=== PATIENT | female | born 1990 | race Caucasian/White ===

== ENCOUNTER 2024-08-04 10:15 | Emergency (ER) | payer SELFPAY ==
--- NOTE | ~2024-08-04 | CT_ITS ---
CT of the Abdomen and Pelvis: Indication: Abdominal pain Technique: 2.5 mm axial scans were obtained through the abdomen and pelvis following intravenous adm inistration of 100 cc of Omnipaque 350. Dose reduction technique was used on this scan by utilizing a utomated exposure control and iterative reconstruction technique. The dose-length product (DLP) was 1 63.95 mGy-cm. Findings: Scans through the lung bases are unremarkable. The liver, spleen, pancreas, gallbladder, adrenals and kidneys are within normal limits. No evidence of aortic aneurysm. No lymphadenopathy. No bowel obstruction or bowel wall thickening. There is no evidence to suggest acute appendicitis. Images through the pelvis were performed. Urinary bladder unremarkable. No pelvic mass evident. No as cites. Bilateral L5 pars interarticularis defects are present, with grade 1 anterolisthesis of L5 ove r S1. Impression: No acute abnormality. Bilateral L5 pars interarticularis defects, with grade 1 anterolisthesis of L5 over S1. Reviewed, dictated and finalized at location . Impression: No acute abnormality. Bilateral L5 pars interarticularis defects, with grade 1 anterolisthesis of L5 over S1.
--- NOTE | ~2024-08-04 | US_ITS ---
EXAMINATION: US pelvic complete w TV INDICATION: Lower abdomen pain. Vaginal bleeding. Comparison:No prior studies for comparison. TECHNIQUE: Multiple transabdominal and endovaginal sonographic images of the pelvis performed. FINDINGS: The uterus measures 9.1 x 4.2 x 4.9 cm.. There is a hypoechoic 1 cm mass near the cervix, l ikely complicated nabothian cysts. The endometrial complex measures 3 mm. The right ovary measures 3 x 2.4 x 1.7 cm and the left ovary measures 2.1 x 2.7 x 1.3 cm. There is a right ovarian cyst measuring 1.8 cm. There are small follicles in each ovary. Normal doppler signal in both ovaries. There is free fluid in the pelvis. There are no abnormal masses seen on either side. IMPRESSION: 1. Right ovarian simple cyst measuring 1.8 cm. 2: Probable complicated nabothian cyst measuring 1 cm. Reviewed, dictated and finalized at location A.
[2024-08-04 10:41] VITALS: BP 103/60; PULSE 65; RESP 16; TEMP 36.5; O2SAT 100
[2024-08-04 11:12] LABS: Basophils Absolute Auto 0.1 K/mm3 (0.0-0.1); Basophils Percent Auto 1.3 % (0.2-1.2); Eosinophils Absolute Auto 0.1 K/mm3 (0-0.3); Eosinophils Percent Auto 1.6 % (0-4.4); Hematocrit 32.7 % (37.0-47.0); Hemoglobin 10.5 g/dL (12.0-15.0); Lymphocytes Absolute Auto 1.72 K/mm3 (0.9-3.2); Lymphocytes Percent Auto 44.6 % (18.3-44.2); Mean Corpuscular HGB Conc 32.1 g/dl (32-36); Mean Corpuscular Hemoglobin 29.6 pg (26-34); Mean Corpuscular Volume 92.1 fl (80-100); Mean Platelet Volume 11.3 fl (7.4-10.4); Monocytes Absolute Auto 0.3 K/mm3 (0.1-0.6); Monocytes Percent Auto 8.5 % (2.6-8.5); Neutrophils Absolute Auto 1.7 K/mm3 (1.3-6.7); Platelet Count Result 186 k/mm3 (150-375); Red Blood Count 3.55 M/mm3 (4.2-5.4); Red Cell Distribution Width 13.8 % (11.5-14.5); White Blood Count 3.9 K/mm3 (4.5-10.0)
--- NOTE | 2024-08-04 11:12 | PC.NURSE ---
NAVEEN Nelson at bedside assessing pt.
--- NOTE | 2024-08-04 11:15 | ECG_ITS ---
Test Date: 2024-08-04 13:03:59 Measurements Intervals Berkley Rate: 51 P: 74 GA: 136 QRS: 34 QRSD: 91 T: 51 QT: 445 QTc: 411 Interpretive Statements SINUS BRADYCARDIA LOW QRS VOLTAGE IN PRECORDIAL LEADS [QRS DEFLECTION < 1.0 mV IN CHEST LEADS] No previous ECG available for comparison Electronically Signed On 08-04-2024 17:59:18 CDT by Ramya Calhoun
[2024-08-04 11:24] LABS: Alanine Aminotransferase 24 U/L (6-35); Albumin Level 4.3 g/dL (3.5-5.1); Alkaline Phosphatase 31 U/L (38-126); Anion Gap 10 mmol/L (4-12); Aspartate Amino Transferase 32 U/L (14-36); Bilirubin,Total 0.6 mg/dL (0.2-1.3); Blood Urea Nitrogen 9 mg/dL (7-17); Calcium 8.6 mg/dL (8.4-10.2); Carbon Dioxide 21 mmol/L (22-30); Chloride 106 mmol/L (98-107); Estimated CRCL calculation 73 ml/min; Estimated Glomerular Filt Rate > 60; Glucose 83 mg/dL (65-110); Potassium 3.8 mmol/L (3.4-5.0); Sodium 137 mmol/L (137-145)
--- NOTE | 2024-08-04 11:32 | PC.NURSE ---
Lab called to add on lipase.
[2024-08-04 11:33] LABS: Partial Thromboplastin Time 26.6 Seconds (22.3-36.8); Prothrombin Time 13.3 Seconds (11.1-14.7)
[2024-08-04 11:40] LABS: Beta HCG Quantitative < 2.39 mIU/ML
[2024-08-04 11:49] LABS: Add Urine Microscopic? YES; Appearance Urine Clear (Clear); Bacteria Urine None Seen /hpf; Bilirubin Urine Negative (Negative); Blood Urine Trace (Negative); Color Urine Yellow (Yellow); Glucose Urine UA Negative (Negative); Ketones Urine Negative (Negative); Leukocyte Esterase Ur Negative LEU/UL (Negative); Nitrate Urine Negative (Negative); Non Pathogenic Casts 0-2; Protein Urine Negative (Negative); RBC Urine 0-2 /hpf (0-2); Specific Grav Ur 1.006 (1.001-1.035); Squamous Epithelial Cell Urine None Seen /hpf (Few); Urobilinogen Urine 0.2 mg/dL (<2.0); WBC Urine 0-5 /hpf (0-3); pH Urine 7.5 (5.0-9.0)
[2024-08-04 11:52] LABS: Lipase 61 U/L (23-300)
--- NOTE | 2024-08-04 11:54 | ED_ITS ---
HPI - Female Genitourinary General Chief complaint: Vaginal Bleeding Stated complaint: vaginal bleeding Time Seen by Provider: 08/04/24 10:23 History of Present Illness HPI Narrative: 34-year-old female presents to the emergency department for abnormal uterine bleeding and lower abdominal pain. Patient states 2 nights ago she had sexual intercourse with her boyfriend and states she had sharp pain in her pelvic region that radiated to her anus. States after having sexual intercourse she felt “sore” in her pelvic region. Following day she began developing light vaginal spotting and this morning developed heavy vaginal bleeding. She states she had to change her pad/tampon several times an hour. She states this morning she passed a hand size “mass” she describes as cloudy and pink. She states she contacted her PCP and was advised to come to the ED. She also notes that earlier today she felt like she was going to pass out due to the amount of blood she was losing. She endorses a history of anemia. She has had 1 sexual partner in the past year and denies concern for STDs. Denies dysuria, hematuria, fever. Related Data Allergies Allergy/AdvReac Type Severity Reaction Status Date / Time No Known Allergies Allergy Mild Verified 08/04/24 10:51 Review of Systems 2 Review of Systems: All systems reviewed & are unremarkable except as noted in HPI and below Exam 2 Narrative: GENERAL: Well-appearing, well-nourished, and in no acute distress. HEAD: Normocephalic, atraumatic. EYES: EOMI. ENT: Nares clear, no rhinorrhea or epistaxis. Mucous membranes moist. NECK: Supple. CHEST: Clear to auscultation. No respiratory distress. HEART: Regular rate and rhythm. No murmur heard. Normal peripheral pulses. ABDOMEN: Normoactive bowel sounds. Abdomen soft with tenderness diffusely to the lower abdomen and suprapubic region. No rebound or rigidity. No CVA tenderness. : Chaperoned by JULITO Mitchell: Normal external genitalia with mild amount of blood in the vaginal vault. Cervical os closed, no lacerations, no puncture wounds. No clots or masses. No CMT, adnexal masses or tenderness. EXTREMITIES: Normal range of motion. No edema. SKIN: Warm, dry, no rash. NEURO: No focal deficits. Alert and oriented x3 Course Vital Signs Vital signs: Vital Signs Temperature 97.7 F 05/14/25 10:41 Pulse Rate 65 08/04/24 10:41 Respiratory Rate 16 08/04/24 10:41 Blood Pressure 103/60 08/04/24 10:41 Pulse Oximetry 100 08/04/24 10:41 Oxygen Delivery Room Air 08/04/24 10:41 Temperature 97.7 F 08/04/24 10:41 Pulse Rate 66 08/04/24 12:53 Respiratory Rate 16 08/04/24 12:53 Blood Pressure 103/60 08/04/24 10:41 Pulse Oximetry 97 08/04/24 12:53 Oxygen Delivery Room Air 08/04/24 10:41 MDM - Female Genitourinary MDM Narrative Medical decision making narrative: 34-year-old female presents to the emergency department for vaginal bleeding and lower abdominal pain. Patient had sexual intercourse 2 nights ago and developed pelvic pain, the following day developed vaginal spotting with heavy vaginal bleeding today. Reported associated lightheadedness/presyncope. Triage vitals is unremarkable. Patient is afebrile and nontoxic appearing. Exam is significant for the above. Given reported lower abdominal pain and vaginal bleeding is after sexual intercourse, will perform pelvic exam, obtained lab work, pelvic ultrasound, CT abdomen pelvis. Pelvic exam is notable for the above. Notably, no cervical laceration or obvious perforation, no hemorrhage. No CMT. CBC with leukopenia of 3.9 and hemoglobin of 10.5. No prior for comparison. Platelets 186. Chemistries are unremarkable. is negative. UA is unremarkable, no UTI or hematuria. Lipase is within normal limits. Pelvic ultrasound shows a right ovarian simple cyst measuring 1.8 cm and a probable complicated on both insist measuring 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 Patient is neurovascularly intact, no saddle anesthesia, no bowel or bladder incontinence or urinary retention. GC/chlamydia and Trichomonas tests pending. Patient declines empiric treatment of STDs. Patient updated on results. She received IV fluids with improvement and is ambulatory in the ED without lightheadedness or dizziness. Her bleeding has significantly improved and her exam is reassuring. Suspect her symptoms are due to menstruation vs abnormal uterine bleeding. Patient was advised to follow-up with her PCP and global expansion sales director given strict ED return precautions. She is agreeable with the plan verbalized understanding. Discharged in stable condition. Lab Data 08/04/24 11:00 08/04/24 11:00 Labs: Lab Results 08/04/24 08/04/24 08/04/24 Range/Units 11:00 11:25 12:29 WBC 3.9 L (4.5-10.0) K/mm3 RBC 3.55 L (4.2-5.4) M/mm3 Hgb 10.5 L (12.0-15.0) g/dL Hct 32.7 L (37.0-47.0) % MCV 92.1 (80-100) fl MCH 29.6 (26-34) pg MCHC 32.1 (32-36) g/dl RDW 13.8 (11.5-14.5) % Plt Count 186 (150-375) k/mm3 MPV 11.3 H (7.4-10.4) fl Immature Gran % (Auto) 0.0 (0-0.5) % Neut % (Auto) 44.0 L (45.5-73.1) % Lymph % (Auto) 44.6 H (18.3-44.2) % Bee % (Auto) 8.5 (2.6-8.5) % Eos % (Auto) 1.6 (0-4.4) % Baso % (Auto) 1.3 H (0.2-1.2) % Lymph # (Auto) 1.72 (0.9-3.2) K/mm3 Bee # (Auto) 0.3 (0.1-0.6) K/mm3 Eos # (Auto) 0.1 (0-0.3) K/mm3 Baso # (Auto) 0.1 (0.0-0.1) K/mm3 Abs Immat Gran (auto) 0.00 (0.00-0.031) K/mm3 Absolute Neuts (auto) 1.7 (1.3-6.7) K/mm3 Absolute Nucleated RBC 0.000 (0.0-0.012) K/mm3 Nucleated RBC % 0.0 (0.0-0.2) % PT 13.3 (11.1-14.7) Seconds INR 1.0 APTT 26.6 (22.3-36.8) Seconds Sodium 137 (137-145) mmol/L Potassium 3.8 (3.4-5.0) mmol/L Chloride 106 (98-107) mmol/L Carbon Dioxide 21 L (22-30) mmol/L Anion Gap 10 (4-12) mmol/L BUN 9 (7-17) mg/dL Creatinine 0.74 (0.7-1.0) mg/dL Estim Creat Clear Calc 73 ml/min Estimated GFR > 60 (59 - ) Glucose 83 (65-110) mg/dL Calcium 8.6 (8.4-10.2) mg/dL Total Bilirubin 0.6 (0.2-1.3) mg/dL AST 32 (14-36) U/L ALT 24 (6-35) U/L Alkaline Phosphatase 31 L (38-126) U/L Total Protein 7.0 (6.3-8.2) g/dL Albumin 4.3 (3.5-5.1) g/dL Lipase 61 (23-300) U/L Beta HCG, Quant < 2.39 mIU/ML Urine Color Yellow (Yellow) Urine Appearance Clear (Clear) Urine pH 7.5 (5.0-9.0) Ur Specific [place] 1.006 (1.001-1.035) Urine Protein Negative (Negative) mg/dL Urine Glucose (UA) Negative (Negative) mg/dL Urine Ketones Negative (Negative) mg/dL Ur Blood (Man) Trace (Negative) Urine Nitrate Negative (Negative) Urine Bilirubin Negative (Negative) Urine Urobilinogen 0.2 (<2.0) mg/dL Leukocyte Esterase Rfl Negative (Negative) AMILCAR/UL Urine RBC 0-2 (0-2) /hpf Urine WBC 0-5 (0-3) /hpf Ur Squamous Epith Cells None seen (Few) /hpf Urine Bacteria None seen /hpf Urine Casts 0-2 C. trachomatis (PCR) Pending N. gonorrhoeae (PCR) Pending T. vaginalis (PCR) Pending Discharge Plan Discharge Clinical Impression: Vaginal bleeding, Normocytic anemia, Nabothian cyst, Lumbar pars defect Leukopenia Qualifiers: Leukopenia type: unspecified Qualified Code(s): D72.819 - Decreased white blood cell count, unspecified Ovarian cyst Qualifiers: Laterality: right Qualified Code(s): N83.201 - Unspecified ovarian cyst, right side Patient Disposition: Home Condition: Stable Instructions: Antibiotic Form, Abnormal (Dysfunctional) Uterine Bleeding (ED) Additional Instructions: Please follow-up closely with the primary care provider and global expansion sales director. Return to the emergency department if you develop a fever, your saturating through 1 pad or tampon an hour, you become lightheaded, or other concerning symptoms. Patient Language: French Follow-up/Referrals: Bruce Medel MD [Physician] - Jay,Felicia Melgoza MD [Non-Staff] -
[2024-08-04] MEDS: SODIUM CHLORIDE 0.9% IV 1,000 ML 999 ML IV CONT (12:26)
[2024-08-04 12:53] VITALS: PULSE 66; RESP 16; O2SAT 97
--- OUTSIDE RECORDS SUMMARY | 2024-08-04 13:02 | XMS_ITS | Encounter Summary ---
Author Organization [facility] Healthcare Address [address] [place] [address] Care Team Providers Care Power Grader Operator Name Role Phone Pedro Espinoza Primary Care Provider [phone] Reason for Visit * Reason Onset Date Comments Vaginal Bleeding 08/04/2024 Abdominal Pain 08/04/2024 Encounter Details Date Type Department Care Team (Late st Contact Info) Description 08/04/[address] [facility] Medical Group Family Medicine [address] [place] [phone] Patty Kong RN Social History Tobacco Use Types Packs/Day Years Used Date Smoking Tobacco: Every Day E-cigarettes PHQ-2 Answer Date Recorded PHQ-2 Total Score (If total score is 3 or more points, staff should administer the PHQ-9) 0 11/03/2023 Comments Unknown Sex and Gender Information Value Date Recorded Sex Assigned at Not on file Legal Sex Female 2:43 PM CDT Gender Identity Not on file Sexual Orientation Not on file documented as of this encounter Miscellaneous Notes * Telephone Encounter - Ptaty Kong RN - 08/04/2024 9:45 AM CDT Patient reports having severe pain with intercourse 2 nights ago, stating she felt pain in the lower abdomen and pressure in the rectum. Yesterday patient noted some vaginal spotting. This morning patient woke with severe abdominal pain, 10/10 at the time, and reports she had a large amount of vaginal bleeding. Patient states when the pain subsided, she went to the bathroom and noted excessive blood and a mass in her underwear about the size of her hand. Patient states she took a negative test 2 days ago. Patient states she has continued to have heavy bleeding, soaking through a tampon and into a pad more than once per hour. Patient states she continues to have abdominal pain at this time in the lower abdomen, rating 6/10. She reports a hx of anemia and has concerns for the bleeding but states she cannot afford an emergency room visit. Provider contacted via secure chat for ED disposition consult. Recommendation from provider:[facility]ceed[facility] ED [place] with Pedro Espinoza PA: ED right away Returned call to patient to inform of recommendation. Patient agreeable to disposition. Nursing care advice also provided. Encouraged to call back if there are further questions or concerns. Encouraged to call back if symptoms persist or worsen. Reason for Disposition SEVERE vaginal bleeding (e.g., soaking 2 pads or tampons per hour and present 2 or more hours; 1 menstrual cup every 2 hours) Protocols used: Vaginal Bleeding - [id number] * Telephone Encounter - Yin Jamison RN - 08/04/2024 9:28 AM CDT Regarding: Stabbing pain ----- Message from Patty Serna sent at 08/04/2024 9:26 AM CDT ----- Symptom Based Call Chief Complaint(s): Stabbing pain Duration: 08/03 What type of symptom(s) is the patient experiencing? Red Flag. Is the patient concerned they are experiencing a medical emergency requiring an ambulance? No Additional Comments: the patient was having sexual intercourse afterward she had stabbing pain and a mass the size of her hand came out, she tried to save the mass and rinse it but when down the drain/ the mass was pinkish the cloudy or white / patient stated that she lost a lot of blood and she has anemia Does message need to be routed? Yes-Action Needed documented in this encounter Plan of Treatment Not on file documented as of this encounter Visit Diagnoses Not on filedocumented in this encounter Care Teams Power Grader Operator Relationship Specialty Start Date End Date Pedro Espinoza PA [address] [address] PCP - General Family Medicine 08/16/21 documented as of this encounter
--- OUTSIDE RECORDS SUMMARY | 2024-08-04 13:03 | XMS_ITS ---
Author Organization Unknown Address [address] [place], [place] [id number] Phone Care Team Providers Care Director Of Retention Name Role Phone ASAD PAL SAMPLE PULLER Attending Unavaila ble Social History Type Status Start Date End Date Code Code Syst em Smoking History Never smoker (Never Smoked) 450667450 SNOMED CT Sex Female Vital Signs Vital Sign Value Unit [place] Value [place] Unit Date/Time Recent/Initial? Code Code System Body Mass Index 23.78 kg/m2 11/09/2019 10:19 Initial 69263 -5 [facility] Systolic Blood Pressure 100 mm[Hg] 11/09/2019 10:19 Initial 8480- 6 [facility] Diastolic Blood Pressure 68 mm[Hg] 11/09/2019 10:19 Initial 8462- 4 [facility] Body Surface Area 1.61 m2 11/09/2019 10:19 Initial 3140- 1 [facility] Height 157.480 0 cm 62.00 in 11/09/2019 10:19 Initial 8302- 2 [facility] O2 Saturation 97 % 2019 10:19 Initial 90651 -5 [facility] Pulse 83.0 /min 11/09/2019 10:19 Initial 8867- 4 [facility] Respiration 20 /min 11/09/19 20 10:19 Initial 9279- 1 [facility] Temperature 36.9 Elizabeth 98.4 F 11/09/19 20 10:19 Initial 8310- 5 [facility] Weight 58.97 kg 130.00 lbs 11/09/2019 10:19 Initial 92629 -7 [facility] Medications Medication Start Date End Date Route Frequency Dose Code Code System Medication Instructions Home Meds busPIRone 5MG Oral Tablet 10/12/2019 03/28/2020 BY MOUTH TWICE A DAY 1 TABLET 252801 RxNorm 1 TABLET BY MOUTH TWICE A DAY at lunch and hs Ativan 1MG Oral Tablet 10/12/2019 11/09/2019 BY MOUTH AT BEDTIME 1 TABLET 207060 RxNorm 1 TABLET BY MOUTH AT BEDTIME Xanax 1MG Oral Tablet 11/09/2019 03/28/2020 BY MOUTH TWICE A DAY 1 TABLET 865130 RxNorm 1 TABLET BY MOUTH TWICE A DAY Xanax 1MG Oral Tablet 03/28/2020 09/26/2020 BY MOUTH TWICE A DAY 1 TABLET 724662 RxNorm 1 TABLET BY MOUTH TWICE A DAY Xanax 1MG Oral Tablet 09/26/2020 10/31/2020 BY MOUTH TWICE A DAY 1 TABLET 549907 RxNorm 1 TABLET BY MOUTH TWICE A DAY Xanax 1MG Oral Tablet 10/31/2020 05/19/2021 BY MOUTH TWICE A DAY 1 TABLET 155151 RxNorm 1 TABLET BY MOUTH TWICE A DAY Effexor XR 37.5MG Oral Capsule, Extended Release 10/31/2020 Unknown BY MOUTH DAILY 1 CAPSULE 973324 RxNorm 1 CAPSULE BY MOUTH DAILY Effexor XR 75MG Oral Capsule, Extended Release 11/30/2020 03/02/2021 BY MOUTH DAILY 1 CAPSULE 778603 RxNorm 1 CAPSU LE BY MOUTH DAILY Effexor XR 75MG Oral Capsule, Extended Release 03/02/2021 08/14/2021 BY MOUTH DAILY 1 CAPSULE 099922 RxNorm TAKE 1 CAPSULE BY MOUTH EVERY DAY Xanax 1MG Oral Tablet 05/19/2021 Unknown BY MOUTH TWICE A DAY 1 TABLET 239599 RxNorm 1 TABLET BY MOUTH TWICE A DAY Effexor XR 75MG Oral Capsule, Extended Release 08/14/2021 Unknown BY MOUTH DAILY 1 CAPSULE 860556 RxNorm TAKE 1 CAPSULE BY MOUTH EVERY DAY Assessment You had the following problems:MIGRAINEANKLE SPRAINANXIETY Assessment Impression: ANGELLA Current Status: improving Hospital Discharge Instructions Should you have any questions prior to discharge, please contact a member of your healthcare team. If you have left the hospital and have any questions, please contact your primary care physician. Reason For Referral No Data Found Problems Problem Start Date Resolved Date Status Code Code System MIGRAINE active 08212567 SNOMED-CT ANKLE SPRAIN active 66506482 SNOMED- CT ANXIETY active 13294235 SNOMED-CT Allergies and Adverse Reactions Allergy Substance Reaction Severity Start Date Concern Status Co de Code System No Known Drug Allergies Active 324275966 SNOMED-CT Plan of Treatment Plan Medications: Change to xanax 1mg BID PRN, continue to try to take the buspar Additional Treatments: Discussed mixing medication with patient, will change to xanax and see if effectiveness lasts throughout the day better, follow up in 3 months if current treatment works and sooner if needed. Plan Discussion: Discussed with Patient Encounters Encounter Diagnosis Start Date Code Code Sys tem Anxiety 11/09/2019 45918312 SNOMED-CT Personal Care Team Section Performer Name Performer Role Active Date Inactive Da te
--- OUTSIDE RECORDS SUMMARY | 2024-08-04 13:03 | XMS_ITS | Clinical Summary ---
Author Organization [facility] Address [address] [place] [address] Care Team Providers Care Credit Office Manager Name Role Phone Unavailable Primary Care Provider Unavailabl e Source Comments [facility],non-owned Affiliates and Associated Physician Practices is amultiple site organization consisting of ambulatory clinics and hospital sitesin [place], [place], [place] and [place]. This disclosure is being madepursuant to the Care Everywhere program and may not contain all information available regarding this patient. Last updated 17.[facility] Allergies Active Allergy Reactions Criticality Noted Date Comments Oxycodone Itching,Nausea and/or Vomiting 03/03 Medications * Be aware that medications may not be up to date on this document. Alwaysverify current medications with the patient. ALPRAZolam (XANAX) 1 MG tablet Take 1 mg by mouth 2 times daily 2 Active oxybutynin CR 24hr (DITROPAN-XL) 10 MG tablet Take 10 mg by mouth once daily 2 Active venlafaxine XR 24hr (EFFEXOR XR) 37.5 MG capsule Take 37.5 mg by mouth once daily 1 Active diazePAM (VALIUM) 5 MG tablet Take 1 (one) tablet by mouth 4 times daily as needed for Spasms 20 tablet 2 Active Additional Information Patient not taking.Reported on 07/23/2021 HYDROcodone-danish taminophen (NORCO) 5-325 MG tablet Take 1 (one) tablet by mouth every 6 hours as needed for Pain 28 tablet 2 Active Additional Information Patient not taking.Reported on 07/23/2021 ALBUTEROL IN Active Active Problems No known active problems Social History Tobacco Use Types Packs/Day Years Used Date Smoking Tobacco: Former Cigarettes Q uit: 2015 Smokeless Tobacco: Never Alcohol Use Standard Drinks/Week Comments Not Currently 0 (1 standard drink = 0.6 oz pur e alcohol) Comments Unknown Sex and Gender Information Value Date Recorded Sex Assigned at Not on file Legal Sex Female 3:08 PM TELETYPESETTER Gender Identity Not on file Sexual Orientation Not on file Last Filed Vital Signs Vital Sign Reading Time Taken Comments Blood Pressure 94/58 07/30/2021 11:05 AM CDT Pulse 77 07/30/2021 11:10 AM CDT Temperature 36.2 C (97.2 F) 07/30/2021 10:43 AM CDT Respiratory Rate 24 07/30/2021 11:10 AM CDT Oxygen Saturation 100% 07/30/2021 11:10 AM CDT Inhaled Oxygen Concentration - - Weight 66.8 kg (147 lb 3.2 oz) 07/30/2021 6:52 A M CDT Height 157.5 cm (5' 2 ) 07/23/2021 3:00 PM CDT Body Mass Index 26.92 07/23/2021 3:00 PM CDT Plan of Treatment Health Maintenance Due Date Last Done Comments PAP SMEAR 1989 HIV SCREENING 01/21/2004 HEPATITIS C SCREENING 01/16/2007 DTAP/TDAP/TD VACCINES (1 - Tdap) 01/21/2008 HEPATITIS B VACCINE (1 of 3 - 19+ 3-dose series) 01/21/2008 COVID-19 VACCINE (3 - 2023-2 5 season) 2023 07/10/2020, 06/19/2020 DEPRESSION SCREENING 03/24/2024 INFLUENZA VACCINE (Season Ended) 2024 ZOSTER VACCINE (1 of 2) 2039 HIB VACCINE Aged Out No longer eligi ble based on patient's age to complete this topic HPV VACCINE Aged Out No longer eligi ble based on patient's age to complete this topic MENINGOCOCCAL (Group B) VACCINE SHARED DECISION-MAKING Aged Out No longer eligible based on patient's age to complete this topic MENINGOCOCCAL GROUPS A/C/Y/W VACCINE Aged Out No longer eligible b ased on patient's age to complete this topic PNEUMOCOCCAL VACCINE Aged Out No long er eligible based on patient's age to complete this topic Insurance SELF PAY NO INSURANCE Pay
--- OUTSIDE RECORDS SUMMARY | 2024-08-04 13:03 | XMS_ITS ---
Author Organization Unknown Address [address], [place] [phone] Phone Care Team Providers Care Film And Video Graphics Designer Name Role Phone ASAD PAL BARREL SCRAPER Attending Unavaila ble Social History Type Status Start Date End Date Code Code Syst em Smoking History Never smoker (Never Smoked) 059382773 SNOMED CT Sex Female Vital Signs Vital Sign Value Unit [place] Value [place] Unit Date/Time Recent/Initial? Code Code System Systolic Blood Pressure 102 mm[Hg] 03/28/2020 11:28 Initial 8480-6 [facility] Diastolic Blood Pressure 60 mm[Hg] 03/28/2020 11:28 Initial 8462-4 [facility] O2 Saturation 100 % 2020 11:28 Initial 87275- 5 [facility] Pulse 78.0 /min 03/28/2020 11:28 Initial 8867-4 [facility] Respiration 16 /min 03/28/19 11:28 Initial 9279-1 [facility] Temperature 36.8 Elizabeth 98.2 F 03/28/19 11:28 Initial 8310-5 [facility] Medications Medication Start Date End Date Route Frequency Dose Code Code System Medication Instructions Home Meds busPIRone 5MG Oral Tablet 10/12/2019 03/28/2020 BY MOUTH TWICE A DAY 1 TABLET 404492 RxNorm 1 TABLET BY MOUTH TWICE A DAY at lunch and hs Xanax 1MG Oral Tablet 11/09/2019 03/28/2020 BY MOUTH TWICE A DAY 1 TABLET 345030 RxNorm 1 TABLET BY MOUTH TWICE A DAY Xanax 1MG Oral Tablet 03/28/2020 09/26/2020 BY MOUTH TWICE A DAY 1 TABLET 646515 RxNorm 1 TABLET BY MOUTH TWICE A DAY Xanax 1MG Oral Tablet 09/26/2020 10/31/2020 BY MOUTH TWICE A DAY 1 TABLET 183043 RxNorm 1 TABLET BY MOUTH TWICE A DAY Xanax 1MG Oral Tablet 10/31/2020 05/19/2021 BY MOUTH TWICE A DAY 1 TABLET 271822 RxNorm 1 TABLET BY MOUTH TWICE A DAY Effexor XR 37.5MG Oral Capsule, Extended Release 10/31/2020 Unknown BY MOUTH DAILY 1 CAPSULE 077215 RxNorm 1 CAPSULE BY MOUTH DAILY Effexor XR 75MG Oral Capsule, Extended Release 11/30/2020 03/02/2021 BY MOUTH DAILY 1 CAPSULE 764757 RxNorm 1 CAPSU LE BY MOUTH DAILY Effexor XR 75MG Oral Capsule, Extended Release 03/02/2021 08/14/2021 BY MOUTH DAILY 1 CAPSULE 445588 RxNorm TAKE 1 CAPSULE BY MOUTH EVERY DAY Xanax 1MG Oral Tablet 05/19/2021 Unknown BY MOUTH TWICE A DAY 1 TABLET 643697 RxNorm 1 TABLET BY MOUTH TWICE A DAY Effexor XR 75MG Oral Capsule, Extended Release 08/14/2021 Unknown BY MOUTH DAILY 1 CAPSULE 099606 RxNorm TAKE 1 CAPSULE BY MOUTH EVERY DAY Assessment You had the following problems:MIGRAINEANKLE SPRAINANXIETY Assessment Impression: Anxiety, Generalized Anxiety Disorder, Post-Traumatic Stress Disorder Differential Diagnosis: Panic Disorder, Obsessive-Compulsive Disorder, Adjustment Disorder Current Status: Improving, Responding to Treatment Hospital Discharge Instructions Should you have any questions prior to discharge, please contact a member of your healthcare team. If you have left the hospital and have any questions, please contact your primary care physician. Reason For Referral No Data Found Problems Problem Start Date Resolved Date Status Code Code System MIGRAINE active 28065480 SNOMED-CT ANKLE SPRAIN active 03542979 SNOMED- CT ANXIETY active 89964973 SNOMED-CT Allergies and Adverse Reactions Allergy Substance Reaction Severity Start Date Concern Status Co de Code System No Known Drug Allergies Active 938712895 SNOMED-CT Plan of Treatment Plan Medications: Benzodiazepines, continue medicatioin Additional Treatments: Relaxation Techniques, Exercise Program, Caffeine Avoidance Plan Discussion: Discussed with Patient Follow Up: Follow-Up PRN Informed Consent: All Questions Were Answered Encounters Encounter Diagnosis Start Date Code Code Sys tem Anxiety 03/28/2020 28555787 SNOMED-CT Personal Care Team Section Performer Name Performer Role Active Date Inactive Da te
--- OUTSIDE RECORDS SUMMARY | 2024-08-04 13:03 | XMS_ITS | Referral Summary ---
Author Organization [facility] [place] 200 [facility] ost Address [address] [place] [address] Care Team Providers Care Judo Instructor Name Role Phone Pedro Espinoza Primary Care Provider [phone] Encounters Date Type Department Care Team Description 08/04/2024 Nurse Triage [facility] Family Medicine [address] [facility] [address] [place] [address] Patty Kong RN from Last 3 Months Allergies Active Allergy Reactions Criticality Noted Date Comments Oxycodone Itching,Nausea And Vomiting Low 03/03/[address] (PROTONIX) 40 mg EC tablet Take 1 tablet (40 mg total) by mouth daily 30 tablet 11 2 Active albuterol HFA (PROVENTIL HFA,VENTOLIN HFA,PROAIR HFA) 90 mcg/actuation inhaler Inhale 2 puffs every 6 (six) hours as needed for shortness of breath 1 each 6 4 Active albuterol-budes onide (Airsupra) 90-80 mcg/actuation HFA aerosol inhaler Inhale 2 puffs 4 (four) times a day as needed (Shortness breath) 32.1 g 3 4 Active oxyBUTYnin XL (DITROPAN-XL) 10 mg 24 hr tablet TAKE 1 TABLET BY MOUTH EVERY DAY 30 tablet 23 4 Active clonazePAM (KlonoPIN) 1 mg tablet Take 1 tablet (1 mg total) by mouth 2 (two) times a day 60 tablet 5 5 Active clonazePAM (KlonoPIN) 1 mg tablet Take 1 tablet (1 mg total) by mouth 2 (two) times a day 60 tablet 5 07/24/19 25 Discontinu ed(Reorder ) Active Problems Problem Noted Date Diagnosed Date PTSD (post-traumatic stress disorder) 08/16/2021 Urinary incontinence 08/16/2021 Immunizations Immunization Administration Dates Next Due Influenza, Unspecified 03/29/2024(Deferr ed: Patient Refused),11/03/2023(Deferred: Patient Refused),05/25/2023(Deferred: Patient Refused),05/23/2023(Deferred: Patient Refused),11/12/2022(Deferred: Patient Refused),05/24/2022(Deferred: Patient Refused),05/24/2022(Deferred: Patient Refused) Pneumococcal Conjugate Pcv20 11/03/2023(Deferred : Patient Refused) Social History Tobacco Use Types Packs/Day Years Used Date Smoking Tobacco: Every Day E-cigarettes Tobacco Cessation:Ready to Q uit: Not Asked; Counseling Given: Not Answered PHQ-2 Answer Date Recorded PHQ-2 Total Score [...] Sign Reading Time Taken Comments Blood Pressure 96/50 12/12/2023 8:55 AM CDT Pulse 78 12/12/2023 8:55 AM CDT Temperature 36.7 C (98 F) 02/19/2023 10:34 AM AUTO SERVICE REPRESENTATIVE Respiratory Rate 16 11/03/2023 11:26 AM CDT Oxygen Saturation 99% 12/12/2023 8:55 AM CDT Inhaled Oxygen Concentration - - Weight 52.2 kg (115 lb) 03/29/2024 8:55 AM AUTO SERVICE REPRESENTATIVE Height 160 cm (5' 3 ) 03/29/2024 8:55 AM AUTO SERVICE REPRESENTATIVE Body Mass Index 20.37 03/29/2024 8:55 AM AUTO SERVICE REPRESENTATIVE Plan of Treatment Not on file Procedures Procedure Name Priority Date/Time Associated Diagnosis Comments LIPID PANEL Routine 08/02/2024 1:44 PM CDT Annual physical exam COMPREHENSIVE METABOLIC PANEL Routine 08/02/2024 1:44 PM CDT Annual physical exam HEPATITIS C ANTIBODY Routine 10/06/2023 1:22 PM CDT STD exposure from Last 3 Months or Most Recently Relevant to Health Maintenance Results * (ABNORMAL) Lipid panel (08/02/2024 1:44 PM CDT) [facility] Cholesterol 199 <200 mg/dL [facility] HDL 72 > OR = 50 mg/dL [facility] Triglycerides 63 <150 mg/dL [facility] LDL 112(H) mg/dL (calc) [facility] Comment: Reference range: <100 Desirable range <100 mg/dL for primary prevention; <70 mg/dL for patients with CHD or diabetic patients with > or = 2 CHD risk factors. LDL-C is now calculated using the Carlos-Leonard calculation, which is a validated novel method providing better accuracy than the Friedewald equation in the estimation of LDL-C. Carlos SS et al. EKTA. 2013;310(19): 9117-3345 (http://education.IntellectSpace/faq/ZTY265) Chol/HDL ratio 2.8 <5.0 (calc) Tammy [facility] Brennan Non-HDL, (LDL+VLDL) 127 <130 mg/dL (calc) [facility] Comment: For patients with diabetes plus 1 major ASCVD risk factor, treating to a non-HDL-C goal of <100 mg/dL (LDL-C of <70 mg/dL) is considered a therapeutic option. Blood 08/02/2024 1:44 PM CDT 08/02/2024 1:45 PM CDT Narrative [facility] - 08/03/2024 3:37 AM CDT FASTING:YES FASTING: YES Pedro HODGE LAB BLOOD ORDERABLES Final Result [facility] [address] [place] [address] * (ABNORMAL) Comprehensive metabolic panel (08/02/2024 1:44 PM CDT) Glucose 80 65 - 99 mg/dL [facility] foss Mika Comment: Fasting reference interval BUN 10 7 - 25 mg/dL [facility] pipo Brennan Creatinine 0.76 0.50 - 0.97 mg/dL [facility] pipo Brennan eGFR 105 > OR = 60 mL/min/1.7 3m2 [facility] BUN/creat ratio SEE NOTE: 6 - 22 (calc) [facility] pipo Brennan Comment: Not Reported: BUN and Creatinine are within reference range. Sodium 136 135 - 146 mmol/L [facility] Potassium, pl 4.2 3.5 - 5.3 mmol/L Tammy Davy pipo Brennan Chloride 104 98 - 110 mmol/L Tam[facility] pipo Mika CO2 25 20 - 32 mmol/L [facility]- pipo Brennan Calcium 9.1 8.6 - 10.2 mg/dL [facility] Mika Protein, sr 6.8 6.1 - 8.1 g/dL [facility] Brennan Albumin 4.5 3.6 - 5.1 g/dL [facility]- pipo Brennan GLOBULIN 2.3 1.9 - 3.7 g/dL (calc) [facility] Alb/glob ratio 2.0 1.0 - 2.5 (calc) Tammy [facility] Brennan Bilirubin, total 0.6 0.2 - 1.2 mg/dL [facility] Alk phos 26(L) 31 - 125 U/L [facility] pip[facility] Brennan AST 18 10 - 30 U/L [facility] pipo Brennan ALT (SGPT) 17 6 - 29 U/L [facility] pipo Brennan Blood 08/02/2024 1:44 PM CDT 08/02/2024 1:45 PM CDT Narrative [facility] - 08/03/2024 3:37 AM CDT FASTING:YES FASTING: YES Pedro HODGE LAB BLOOD ORDERABLES Final Result [facility] [address] [place] [address] * Hepatitis C antibody Blood (10/06/2023 1:22 PM CDT) Hep C Ab Nonreactive Nonreactive Comment: Antibodies to HCV not detected. Does NOT exclude the possibility of recent exposure to HCV. Current interpretive data was last revised on 21 Interpretive Data Nonreactive: Antibodies to HCV not detected. Does NOT exclude the possibility of recent exposure to HCV. Equivocal: Equivocal for HCV antibodies. Supplemental molecular testing will be automatically performed to determine infection status in accordance with current CDC screening recommendations. Reactive: Positive for HCV antibodies. This may represent current or past HCV infection. Supplemental molecular testing will be automatically performed to determine current infection status in accordance with current CDC screening recommendations. Interpretive data was last revised on 2019. Blood 10/06/2023 1:22 PM CDT 10/06/2023 5:54 PM CDT Lela Greer NP LAB MICROBIOLOGY - GENERAL ORDERABLES Edited Result - Final [facility] [address] [facility] Department [place] [address] from Last 3 Months or Most Recently Relevant to Health Maintenance Insurance [facility] CHOICE PLUS Care Teams Judo Instructor Relationship Specialty Start Date End Date Pedro Espinoza PA [address] [id number] PCP - General Family Medicine 08/16/21
--- OUTSIDE RECORDS SUMMARY | 2024-08-04 13:03 | XMS_ITS | Clinical Summary ---
Author Organization [facility] [place] [address] Address [address] [place] [address] Care Team Providers Care Power Checker Name Role Phone Pedro Espinoza Primary Care Provider [phone]- [phone] Allergies Active Allergy Reactions Criticality Noted Date [...] (post-traumatic stress disorder) 08/16/2021 Urinary incontinence 08/16/2021 Encounters Date Type Department Care Team Description 08/04/[address] [facility] Family Medicine [address] [facility] [address] [place] [address] Patty Kong RN from Last 3 Months Immunizations Immunization Administration Dates Next Due Influenza, Unspecified 03/29/2024(Deferr ed: Patient Refused),11/03/2023(Deferred: Patient Refused),05/25/2023(Deferred: Patient Refused),05/23/2023(Deferred: Patient Refused),11/12/2022(Deferred: Patient Refused),05/24/2022(Deferred: Patient Refused),05/24/2022(Deferred: Patient Refused) Pneumococcal Conjugate Pcv20 11/03/2023(Deferred : Patient Refused) Surgical History Surgery Date Site/Laterality Comments COSMETIC SURGERY Medical History Medical History Date Comments Asthma Anemia PTSD (post-traumatic stress disorder) Family History Medical History Relation Name Comments Arthritis Father Prostate cancer Maternal Grandfather Arthritis Mother Fibromyalgia Mother Lung cancer Paternal Grandfather Lung cancer Paternal Grandmother Relation Name Status Comments Father Alive Maternal Grandfather Mother Alive Paternal Grandfather Paternal Grandmother Social History Tobacco Use Types Packs/Day Years [...] on file Sexual Orientation Not on file Obstetrics History Last Filed Vital Signs Vital Sign Reading Time Taken Comments Blood Pressure 96/50 12/12/2023 8:55 AM CDT Pulse 78 12/12/2023 8:55 AM CDT Temperature 36.7 C (98 F) 02/19/2023 10:34 AM MUCK MINER BLASTING Respiratory Rate 16 11/03/2023 11:26 AM CDT Oxygen Saturation 99% 12/12/2023 8:55 AM CDT Inhaled Oxygen Concentration - - Weight 52.2 kg (115 lb) 03/29/2024 8:55 AM MUCK MINER BLASTING Height 160 cm (5' 3 ) 03/29/2024 8:55 AM MUCK MINER BLASTING Body Mass Index 20.37 03/29/2024 8:55 AM MUCK MINER BLASTING Plan of Treatment Health Maintenance Due Date Last Done Comments Cervical Cancer Screening 1989 DTaP/Tdap/Td Vaccine (1 - Tdap) 01/21/2000 Varicella Vaccines (1 of 2 - 13+ 2-dose series) 2002 Hepatitis B Screening 2007 Regular Well Visit/Exam 18-64 09/07/2024 09/08/2023, 09/08/2023, 09/12/2022, Additional history exists Pneumococcal vaccine <65 (1 of 2 - PCV) 10/18/2024 Postponed from 01/21/2008 (Patient declined, but will receive in the future) Depression Screening 11/02/2024 11/03/2023, 09/12/2022, 09/12/2022, Additional history exists Influenza Vaccine (Season Ended) 2024 Covid-19 Vaccine ( season) 2025 07/10/2020, 06/19/2020 Postponed from 11/23/2023 (Patient declined, but will receive in the future) Hepatitis C Screening Completed 10/06/2023 HPV Vaccines Aged Out No longer eligi ble based on patient's age to complete this topic Procedures Procedure Name Priority Date/Time Associated Diagnosis Comments LIPID PANEL Routine 08/02/2024 1:44 PM CDT Annual physical exam COMPREHENSIVE METABOLIC PANEL Routine 08/02/2024 1:44 PM CDT Annual physical exam HEPATITIS C ANTIBODY Routine 10/06/2023 1:22 PM CDT STD exposure from Last 3 Months or Most Recently Relevant to Health Maintenance Results * (ABNORMAL) Lipid panel (08/02/2024 1:44 PM CDT) Cholesterol 199 <200 mg/dL [facility] HDL 72 > OR = 50 mg/dL [facility] Triglycerides 63 <150 mg/dL Tammy CogheadJustin Brennan LDL 112(H) mg/dL (calc) Tammy CogheadJustin Brennan Comment: Reference range: <100 Desirable range <100 mg/dL for primary prevention; <70 mg/dL for patients with CHD or diabetic patients with > or = 2 CHD risk factors. LDL-C is now calculated using the Nya calculation, which is a validated novel method providing better accuracy than the Friedewald equation in the estimation of LDL-C. Carlos SS et al. EKTA. 2013;310(19): 0370-0937 (http://education.Morgan Solar/faq/QKG053) Chol/HDL ratio 2.8 <5.0 (calc) Tammy Brennan Non-HDL, (LDL+VLDL) 127 <130 mg/dL (calc) Tammy Brennan Comment: For patients with diabetes plus 1 major ASCVD risk factor, treating to a non-HDL-C goal of <100 mg/dL (LDL-C of <70 mg/dL) is considered a therapeutic option. Blood 08/02/2024 1:44 PM CDT 08/02/2024 1:45 PM CDT Narrative [facility] - 08/03/2024 3:37 AM CDT FASTING:YES FASTING: YES Pedro HODGE LAB BLOOD ORDERABLES Final Result TAMMY [employer] [facility] [address] [place] [address] * (ABNORMAL) Comprehensive metabolic panel (08/02/2024 1:44 PM CDT) [facility] Glucose 80 65 - 99 mg/dL Tammy Brennan Comment: Fasting reference interval BUN 10 7 - 25 mg/dL Tammy Brennan Creatinine 0.76 0.50 - 0.97 mg/dL Tammy Brennan eGFR 105 > OR = 60 mL/min/1.7 3m2 Tammy Brennan BUN/creat ratio SEE NOTE: 6 - 22 (calc) Tammy Brennan Comment: Not Reported: BUN and Creatinine are within reference range. Sodium 136 135 - 146 mmol/L Tammy Brennan Potassium, pl 4.2 3.5 - 5.3 mmol/L [facility] pipo Brennan Chloride 104 98 - 110 mmol/L [facility]S pipo Brennan CO2 25 20 - 32 mmol/L [facility] Brennan Calcium 9.1 8.6 - 10.2 mg/dL [facility] Protein, sr 6.8 6.1 - 8.1 g/dL [facility] Brennan Albumin 4.5 3.6 - 5.1 g/dL [facility] GLOBULIN 2.3 1.9 - 3.7 g/dL (calc) [facility] pip[facility] Brennan Alb/glob ratio 2.0 1.0 - 2.5 (calc) [facility] Bilirubin, total 0.6 0.2 - 1.2 mg/dL [facility] pipo Brennan Alk phos 26(L) 31 - 125 U/L [facility] pipo Brennan AST 18 10 - 30 U/L [facility] pipo Brennan ALT (SGPT) 17 6 - 29 U/L [facility] pipo Brennan Blood 08/02/2024 1:44 PM CDT 08/02/2024 1:45 PM CDT Narrative [facility] - 08/03/2024 3:37 AM CDT FASTING:YES FASTING: YES Pedro HODGE LAB BLOOD ORDERABLES Final Result [facility] [address] [place] [address] * Hepatitis C antibody Blood (10/06/2023 1:22 [...] was last revised on 2019. Blood 10/06/2023 1:2 2 PM CDT 10/06/2023 5:54 PM CDT us Lela Greer CONFECTIONERY MAKER LAB MICROBIOLOGY - GENERAL ORDERABLES Edited Result - Final [facility] Department [place] [address] from Last 3 Months or Most Recently Relevant to Health Maintenance Insurance [facility] CHO[employer] PL[employer] Care Teams Power Checker Relationship Specialty Start Date End Date Pedro Espinoza PA [address] [address] PCP - General Family Medicine 08/16/21
--- OUTSIDE RECORDS SUMMARY | 2024-08-04 13:03 | XMS_ITS ---
Author Organization Unknown Address [address] [place], [place] [id number] Phone Care Team Providers Care Injector Assembler Name Role Phone ASAD PAL SUPERINTENDENT COMMUNICATIONS Attending Unavaila ble Social History Type Status Start Date End Date Code Code Syst em Smoking History Never smoker (Never Smoked) 399950049 SNOMED CT Sex Female Medications Medication Start Date End Date Route Frequency Dose Code Code System Medication Instructions Home Meds Xanax 1MG Oral Tablet 10/31/2020 05/19/2021 BY MOUTH TWICE A DAY 1 TABLET 056248 RxNorm 1 TABLET BY MOUTH TWICE A DAY Effexor XR 37.5MG Oral Capsule, Extended Release 10/31/2020 Unknown BY MOUTH DAILY 1 CAPSULE 238819 RxNorm 1 CAPSULE BY MOUTH DAILY Effexor XR 75MG Oral Capsule, Extended Release 03/02/2021 08/14/2021 BY MOUTH DAILY 1 CAPSULE 778099 RxNorm TAKE 1 CAPSULE BY MOUTH EVERY DAY Xanax 1MG Oral Tablet 05/19/2021 Unknown BY MOUTH TWICE A DAY 1 TABLET 315162 RxNorm 1 TABLET BY MOUTH TWICE A DAY Effexor XR 75MG Oral Capsule, Extended Release 08/14/2021 Unknown BY MOUTH DAILY 1 CAPSULE 070433 RxNorm TAKE 1 CAPSULE BY MOUTH EVERY DAY Assessment You had the following problems:MIGRAINEANKLE SPRAINANXIETY Assessment Impression: Migraines, anxiety Hospital Discharge Instructions Should you have any questions prior to discharge, please contact a member of your healthcare team. If you have left the hospital and have any questions, please contact your primary care physician. Reason For Referral No Data Found Problems Problem Start Date Resolved Date Status Code Code System MIGRAINE active 58048620 SNOMED-CT ANKLE SPRAIN active 10754156 SNOMED- CT ANXIETY active 55971245 SNOMED-CT Allergies and Adverse Reactions Allergy Substance Reaction Severity Start Date Concern Status Co de Code System No Known Drug Allergies Active 063023694 SNOMED-CT Plan of Treatment Plan Diagnostic Plan: Gene site testing Additional Treatments: Refer to neurology for migraines Plan Discussion: Discussed with Patient Follow Up: Follow-Up PRN Informed Consent: All Questions Were Answered Encounters Encounter Diagnosis Start Date Code Code Sys tem Migraine 03/06/2021 13080981 SNOMED-CT Personal Care Team Section Performer Name Performer Role Active Date Inactive Da te
--- OUTSIDE RECORDS SUMMARY | 2024-08-04 13:03 | XMS_ITS | Clinical Summary ---
Author Organization [facility] Address [facility] [place] [address] Care Team Providers Care Anthropologist Name Role Phone None, Provider MD Primary Care Provider Unavaila ble Allergies Active Allergy Reactions Criticality Noted Date Comments Oxycodone Itching 03/03/2021 Social History Tobacco Use Types Packs/Day Years Used Date Smoking Tobacco: Never Assessed Comments No Sex and Gender Information Value Date Recorded Sex Assigned at Not on file Legal Sex Female 12:26 PM ENTERTAINMENT & MEDIA CORRESPONDENT Gender Identity Not on file Sexual Orientation Not on file Last Filed Vital Signs Vital Sign Reading Time Taken Comments Blood Pressure 119/84 03/03/2021 12:34 PM ENTERTAINMENT & MEDIA CORRESPONDENT Pulse 87 03/03/2021 12:34 PM ENTERTAINMENT & MEDIA CORRESPONDENT Temperature 36.8 C (98.2 F) 03/03/2021 12:34 PM ENTERTAINMENT & MEDIA CORRESPONDENT Respiratory Rate 16 03/03/2021 12:34 PM ENTERTAINMENT & MEDIA CORRESPONDENT Oxygen Saturation 100% 03/03/2021 12:34 PM ENTERTAINMENT & MEDIA CORRESPONDENT Inhaled Oxygen Concentration - - Weight 60.3 kg (133 lb) 03/03/2021 12:34 PM ENTERTAINMENT & MEDIA CORRESPONDENT Height 157.5 cm (5' 2 ) 03/03/2021 12:34 PM ENTERTAINMENT & MEDIA CORRESPONDENT Body Mass Index 24.33 03/03/2021 12:34 PM ENTERTAINMENT & MEDIA CORRESPONDENT Plan of Treatment Health Maintenance Due Date Last Done Comments Cervical Cancer Screening Pa p Smear (Age 30 to 64) Every 3 Years 1989 Annual Physical 01/21/1992 Hepatitis C 2007 DTaP, Tdap and Td Vaccines ( 1 - Tdap) 01/21/2008 Hepatitis B Vaccines (1 of 3 - 19+ 3-dose series) 01/21/2008 Cervical Cancer Screening Pa p with HPV Testing (Age 30 to 64) Every 5 Years 2019 Cervical Cancer Screening [employer] HPV 2019 COVID-19 Vaccine (3 2023-2 5 season) 2023 07/10/2020, 06/19/2020 HPV Vaccines Aged Out No longer eligi ble based on patient's age to complete this topic Meningococcal B Vaccine Aged Out No l onger eligible based on patient's age to complete this topic Meningococcal Vaccine Aged Out No ilsa allie eligible based on patient's age to complete this topic Pneumococcal Vaccine: Pediatrics (0 to 5 Years) and At-Risk Patients (6 to 49 Years) Aged Out No longer eligible b ased on patient's age to complete this topic RSV Immunizations Under 20 Months Aged Out No longer eligible b ased on patient's age to complete this topic Insurance Care Teams Anthropologist Relationship Specialty Start Date End Date None, Provider, PCP - General 03/03/21
--- OUTSIDE RECORDS SUMMARY | 2024-08-04 13:04 | XMS_ITS ---
Author Organization Unknown Address [address] [place], [place] [id number] Phone Care Team Providers Care Cosmetology Educator Name Role Phone ASAD PAL GRAIN II FARMWORKER Attending Unavaila ble Social History Type Status Start Date End Date Code Code Syst em Smoking History Never smoker (Never Smoked) 803710652 SNOMED CT Sex Female Vital Signs Vital Sign Value Unit [place] Value [place] Unit Date/Time Recent/Initial? Code Code System Body Mass Index 24.25 kg/m2 10/31/2020 18:30 Initial 26191 -5 [facility] Systolic Blood Pressure 101 mm[Hg] 10/31/2020 18:30 Initial 8480- 6 LOINC Diastolic Blood Pressure 64 mm[Hg] 10/31/2020 18:30 Initial 8462- 4 LOINC Body Surface Area 1.62 m2 10/31/2020 18:30 Initial 3140- 1 LOINC Height 157.480 0 cm 62.00 in 10/31/2020 18:30 Initial 8302- 2 LOINC O2 Saturation 98 % 2020 18:30 Initial 03851 -5 [facility] Pulse 97.0 /min 10/31/2020 18:30 Initial 8867- 4 LOINC Respiration 18 /min 11/01/19 21 18:30 Initial 9279- 1 LOINC Temperature 37.0 Elizabeth 98.6 F 11/01/19 21 18:30 Initial 8310- 5 LOINC Weight 60.15 kg 132.60 lbs 10/31/2020 18:30 Initial 68272 -7 [facility] Medications Medication Start Date End Date Route Frequency Dose Code Code System Medication Instructions Home Meds Xanax 1MG Oral Tablet 09/26/2020 10/31/2020 BY MOUTH TWICE A DAY 1 TABLET 428301 RxNorm 1 TABLET BY MOUTH TWICE A DAY Xanax 1MG Oral Tablet 10/31/2020 05/19/2021 BY MOUTH TWICE A DAY 1 TABLET 285949 RxNorm 1 TABLET BY MOUTH TWICE A DAY Effexor XR 37.5MG Oral Capsule, Extended Release 10/31/2020 Unknown BY MOUTH DAILY 1 CAPSULE 479481 RxNorm 1 CAPSULE BY MOUTH DAILY Effexor XR 75MG Oral Capsule, Extended Release 11/30/2020 03/02/2021 BY MOUTH DAILY 1 CAPSULE 682309 RxNorm 1 CAPSU LE BY MOUTH DAILY Effexor XR 75MG Oral Capsule, Extended Release 03/02/2021 08/14/2021 BY MOUTH DAILY 1 CAPSULE 859626 RxNorm TAKE 1 CAPSULE BY MOUTH EVERY DAY Xanax 1MG Oral Tablet 05/19/2021 Unknown BY MOUTH TWICE A DAY 1 TABLET 748353 RxNorm 1 TABLET BY MOUTH TWICE A DAY Effexor XR 75MG Oral Capsule, Extended Release 08/14/2021 Unknown BY MOUTH DAILY 1 CAPSULE 716585 RxNorm TAKE 1 CAPSULE BY MOUTH EVERY DAY Assessment You had the following problems:MIGRAINEANKLE SPRAINANXIETY Assessment Impression: Anxiety and deprerssion Hospital Discharge Instructions Should you have any questions prior to discharge, please contact a member of your healthcare team. If you have left the hospital and have any questions, please contact your primary care physician. Reason For Referral No Data Found Problems Problem Start Date Resolved Date Status Code Code System MIGRAINE active 28892251 SNOMED-CT ANKLE SPRAIN active 12766912 SNOMED- CT ANXIETY active 52371265 SNOMED-CT Allergies and Adverse Reactions Allergy Substance Reaction Severity Start Date Concern Status Co de Code System No Known Drug Allergies Active 624901859 SNOMED-CT Plan of Treatment Plan Medications: xanax refill, initiate effexor 37.5mg PO daily Additional Treatments: Discussed at length expected affects of medication and to moniror symptoms and return for anything cncerning. Follow Up: Follow-Up 1 month Personal Care Team Section Performer Name Performer Role Active Date Inactive Da colin
--- OUTSIDE RECORDS SUMMARY | 2024-08-04 13:04 | XMS_ITS ---
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 Code Code System Systolic Blood Pressure 106 mm[Hg] 10/12/2019 12:18 Initial 8480-6 LOINC Diastolic Blood Pressure 68 mm[Hg] 10/12/2019 12:18 Initial 8462-4 LOINC O2 Saturation 97 % 2019 12:18 Initial 58026- 5 LOINC Pulse 69.0 /min 10/12/2019 12:18 Initial 8867-4 LOINC Respiration 16 /min 10/12/19 12:18 Initial 9279-1 LOINC Temperature 36.8 Elizabeth 98.3 F 10/12/19 12:18 Initial 8310-5 LOINC Weight 61.60 kg 135.80 lbs 10/12/2019 12:18 [facility] 65235- [facility]ations Medication Start Date End Date Route Frequency Dose Code Code System Medication Instructions Home Meds busPIRone 5MG Oral Tablet 10/12/2019 03/28/2020 BY MOUTH TWICE A DAY 1 TABLET 214395 RxNorm 1 TABLET BY MOUTH TWICE A DAY at lunch and hs Ativan 1MG Oral Tablet 10/12/2019 11/09/2019 BY MOUTH AT BEDTIME 1 TABLET [id number] RxNorm 1 TABLET BY MOUTH AT BEDTIME Xanax 1MG Oral Tablet 11/09/2019 03/28/2020 BY MOUTH TWICE A DAY 1 TABLET [id number] RxNorm 1 TABLET BY MOUTH TWICE A DAY Xanax 1MG Oral Tablet 03/28/2020 09/26/2020 BY MOUTH TWICE A DAY 1 TABLET [id number] RxNorm 1 TABLET BY MOUTH TWICE A DAY Xanax 1MG Oral Tablet 09/26/2020 10/31/2020 BY MOUTH TWICE A DAY 1 TABLET [id number] RxNorm 1 TABLET BY MOUTH TWICE A DAY Xanax 1MG Oral Tablet 10/31/2020 05/19/2021 BY MOUTH TWICE A DAY 1 TABLET [id number] RxNorm 1 TABLET BY MOUTH TWICE A DAY Effexor XR 37.5MG Oral Capsule, Extended Release 10/31/2020 Unknown BY MOUTH DAILY 1 CAPSULE [id number] RxNorm 1 CAPSULE BY MOUTH DAILY Effexor XR 75MG Oral Capsule, Extended Release 11/30/2020 03/02/2021 BY MOUTH DAILY 1 CAPSULE [id number] RxNorm 1 CAPSU LE BY MOUTH DAILY Effexor XR 75MG Oral Capsule, Extended Release 03/02/2021 08/14/2021 BY MOUTH DAILY 1 CAPSULE [id number] RxNorm TAKE 1 CAPSULE BY MOUTH EVERY DAY Xanax 1MG Oral Tablet 05/19/2021 Unknown BY MOUTH TWICE A DAY 1 TABLET [id number] RxNorm 1 TABLET BY MOUTH TWICE A DAY Effexor XR 75MG Oral Capsule, Extended Release 08/14/2021 Unknown BY MOUTH DAILY 1 CAPSULE [id number] RxNorm TAKE 1 CAPSULE BY MOUTH EVERY DAY Assessment You had the following problems:MIGRAINEANKLE SPRAINANXIETY Hospital Discharge Instructions Should you have any questions prior to discharge, please contact a member of your healthcare team. If you have left the hospital and have any questions, please contact your primary care physician. Reason For Referral No Data Found Problems Problem Start Date Resolved Date Status Code Code System MIGRAINE active 69901461 SNOMED-CT ANKLE SPRAIN active 49830075 SNOMED- CT ANXIETY active 03602159 SNOMED-CT Allergies and Adverse Reactions Allergy Substance Reaction Severity Start Date Concern Status Co de Code System No Known Drug Allergies Active 470373306 SNOMED-CT Plan of Treatment Plan Diagnostic Plan: anxiety Medications: buspar, ativan Additional Treatments: relaxation techniques discussed, will reevaluate in a month and can follow up sooner if needed, discussed if any suicidal/homicidal thoughts proceede to the ER immediately Follow Up: Follow-Up PRN Encounters Encounter Diagnosis Start Date Code Code Sys tem Anxiety 10/12/2019 03454352 SNOMED-CT Personal Care Team Section Performer Name Performer Role Active Date Inactive Da te
--- NOTE | 2024-08-04 13:07 | PC.NURSE ---
Pt. able to ambulate independently without difficulty. Gait steady.
[2024-08-04 13:41] VITALS: BP 112/73; PULSE 51; RESP 16; O2SAT 100
[2024-08-04 13:52] LABS: Trichomonas Vag PCR NOT DETECTED (NOT DETECTE)
[2024-08-04 14:14] LABS: Chlamydia trachomatis NOT DETECTED (NOT DETECTE); Neisseria gonorrhoeae PCR NOT DETECTED (NOT DETECTE)
== END 2024-08-04 13:43 | disposition home or self-care (01) ==
PROVIDERS: Emergency Provider Physician Assistant
DX: N93.9 Abnormal uterine and vaginal bleeding, unspecified (principal); N88.8 Other specified noninflammatory disorders of cervix uteri; N83.201 Unspecified ovarian cyst, right side; D64.9 Anemia, unspecified; D72.819 Decreased white blood cell count, unspecified; R93.7 Abnormal findings on diagnostic imaging of other parts of musculoskeletal system; R00.1 Bradycardia, unspecified
CPT/HCPCS: 36415; 74177; 76830; 76856; 80053; 81001; 83690; 84702; 85025; 85610; 85730; 87491; 87591; 87661; 93005; 96360; 99284; J7030; Q9967